=== PATIENT | male | born 1945 | race Caucasian/White ===

== ENCOUNTER 2017-07-16 10:49 | Inpatient (IN) | payer MEDICARE ==
[~2017-07-16 10:49] MED LIST: ATROPINE 1 MG/10 ML SYRINGE; EPINEPHrine 0.1 MG/ML SYG; NA BICARBONATE 8.4% 50 ML SYG
[2017-07-16] MEDS: SODIUM CHLORIDE 0.9% 500 ML BAG IV* (10:53)
[2017-07-16] MEDS ORDERED: NORepinephrine 8MG/250 ML (PMX 250 ML (11:08)
[2017-07-16 11:30] LABS: WHITE BLOOD COUNT 15.4 10^3/ul (4.8-10.8)
[2017-07-16 11:30] LABS: ABNORMAL IP MESSAGE 1; HEMOGLOBIN 9.1 g/dl (14.0-18.0); MEAN CORPUSCULAR HGB CONC 28.4 g/dl (32.0-37.0); MEAN CORPUSCULAR VOLUME 91.4 fl (82.0-101.0); MEAN PLATELET VOLUME 12.8 fl (7.4-10.4); NUCLEATED RED BLOOD CELLS% 1.4 /100WBC (0.0-0.0); PLATELET COUNT 141 10^3/UL (140-415); POSITIVE DIFF @See below; RED CELL DISTRIBUTION WIDTH 18.5 % (11.5-14.5)
[2017-07-16 11:35] LABS: ADD MAN DIFF? YES
[2017-07-16 11:57] LABS: MAGNESIUM 2.5 mg/dl (1.7-2.5)
[2017-07-16 11:57] LABS: PHOSPHORUS 8.1 mg/dl (2.5-4.9)
[2017-07-16 11:59] LABS: ALANINE AMINOTRANSFERASE 83 IU/L (13-69); ALBUMIN 2.6 g/dl (3.3-4.9); ALKALINE PHOSPHATASE 304 IU/L (42-121); ANION GAP 25 (8-16); ASPARTATE AMINO TRANSFERASE 150 IU/L (15-46); BILIRUBIN,INDIRECT 0.2 mg/dl (0-1.1); BILIRUBIN,TOTAL 0.2 mg/dl (0.2-1.3); BLOOD UREA NITROGEN 90 mg/dl (7-20); CALCIUM 8.5 mg/dl (8.4-10.2); CARBON DIOXIDE 13 mmol/L (21-31); CHLORIDE 121 mmol/L (97-110); CREATININE 2.99 mg/dl (0.61-1.24); GLUCOSE 155 mg/dl (70-220); SODIUM 153 mmol/L (135-144); TOTAL PROTEIN 6.3 g/dl (6.1-8.1)
[2017-07-16 12:08] LABS: INR 2.22; PROTIME 25.2 Sec (11.9-14.9)
[2017-07-16 12:09] LABS: PARTIAL THROMBOPLASTIN TIME 46.6 Sec (25.0-35.0); TROPONIN-I 0.093 ng/ml (0.00-0.12)
[2017-07-16] MEDS: NORepinephrine 8MG/250 ML (PMX 250 ML IV ×2 (12:12→18:59)
[2017-07-16] MEDS: EPINEPHrine 4 MG in DEXTROSE 5% 246 ML IV ×3 (12:12→19:02)
[2017-07-16 12:23] LABS: ANISOCYTOSIS 1+ (0-0); BAND NEUTROPHILS % (M) 13 % (0-4); BURR CELLS 3+ (0-0); HYPOCHROMASIA 1+ (0-0); LYMPHOCYTES #M 3.2 10^3/ul (0.8-2.9); LYMPHOCYTES % (M) 21 % (15-51); MICROCYTOSIS 1+ (0-0); MONOCYTE #M 0.4 10^3/ul (0.3-0.9); MONOCYTES % (M) 3 % (0-11); PLATELET ESTIMATE NORMAL; POIKILOCYTOSIS 3+ (0-0); POLYCHROMASIA 3+ (0-0); PROMYELOCYTES #M 0.1 10^3/ul (0-0); PROMYELOCYTES % (M) 1 % (0-0); SEG NEUT #M 9.9 10^3/ul (1.6-7.5); SEGMENTED NEUTROPHILS (M) % 62 % (39-77); SMUDGE%M 2 % (0-0)
[2017-07-16 12:24] LABS: B-TYPE NATRIURETIC PEPTIDE 62400 PG/ML (0-125)
[2017-07-16 12:29] LABS: AADO2 Arterial 533.6 mmHg (7.0-24.0); Allen Test ACCEPTAB; Arterial Base Excess -19.5 mmol/L (-3.0-3); Arterial Blood Gas Oxygen Sat 95.4 mmHG (95.0-98.0); Arterial COHb 0.3 % (0.0-3.0); Arterial Fraction of Oxyhgb 94.6 % (93.0-99.0); Arterial HCO3 12.3 mmol/L (22.0-26.0); Arterial MetHb 0.5 % (0.0-1.5); Arterial Total Hemglobin 9.7 g/dl (12.0-18.0); Arterial pCO2 59.1 mmhg (35-45); MODE VENT - AC; Site Left Radial
[2017-07-16] MEDS ORDERED: NA BICARBONATE 8.4% 50 ML SYG (12:40)
[2017-07-16] MEDS: CA CHLORIDE 10% 10 ML SYRINGE IV (12:49)
[2017-07-16] MEDS ORDERED: FENTAnyl 50 MCG/ML VIAL IV (13:30)
[2017-07-16] MEDS: SODIUM BICARBONATE (IV ADD) 150 MEQ in SOD CHLORIDE 0.9% 1,000 ML IV (13:30)
[2017-07-16] MEDS: VECURONIUM 100 MG in DEXTROSE 5% 100 ML IV (13:48)
[2017-07-16] MEDS: SODIUM BICARBONATE (IV ADD) 150 MEQ in DEXTROSE 5% 850 ML IV (13:57)
[2017-07-16] MEDS: MIDAZOLAM (DRIP) 50 mg/50 mL 50 ML IV ×2 (13:57→19:09)
[2017-07-16] MEDS ORDERED: ACETAMINOPHEN 325 MG TAB PO (14:00)
[2017-07-16] MEDS ORDERED: ONDANSETRON 4 MG INJ IV ×2 (14:00→18:00)
[2017-07-16 16:03] LABS: AADO2 Arterial 205.7 mmHg (7.0-24.0); Allen Test ACCEPTAB; Arterial Base Excess -12.6 mmol/L (-3.0-3); Arterial Blood Gas Oxygen Sat 99.6 mmHG (95.0-98.0); Arterial COHb 0.3 % (0.0-3.0); Arterial Fraction of Oxyhgb 98.8 % (93.0-99.0); Arterial HCO3 15.4 mmol/L (22.0-26.0); Arterial MetHb 0.5 % (0.0-1.5); Arterial Total Hemglobin 10.1 g/dl (12.0-18.0); Arterial pCO2 35.8 mmhg (35-45); MODE VENT - AC; Site Left Radial; Temperature 32.4 C
[2017-07-16 17:18] LABS: ADD MAN DIFF? NO
[2017-07-16 17:23] LABS: WHITE BLOOD COUNT 16.4 10^3/ul (4.8-10.8)
[2017-07-16 17:23] LABS: ABNORMAL IP MESSAGE 1; HEMATOCRIT 28.9 % (42.0-52.0); HEMOGLOBIN 8.6 g/dl (14.0-18.0); MEAN CORPUSCULAR HEMOGLOBIN 26.1 pg (29.0-33.0); MEAN CORPUSCULAR HGB CONC 29.8 g/dl (32.0-37.0); MEAN CORPUSCULAR VOLUME 87.6 fl (82.0-101.0); MEAN PLATELET VOLUME 11.8 fl (7.4-10.4); NUCLEATED RED BLOOD CELLS% 1.4 /100WBC (0.0-0.0); PLATELET COUNT 128 10^3/UL (140-415); POSITIVE DIFF @See below; RED CELL DISTRIBUTION WIDTH 18.4 % (11.5-14.5)
[2017-07-16 17:44] LABS: INR 2.38; PROTIME 26.6 Sec (11.9-14.9); PT RATIO 2.1
[2017-07-16 17:45] LABS: ANION GAP 24 (8-16); BLOOD UREA NITROGEN 93 mg/dl (7-20); CARBON DIOXIDE 16 mmol/L (21-31); CHLORIDE 118 mmol/L (97-110); CREATININE 3.04 mg/dl (0.61-1.24); GLUCOSE 231 mg/dl (70-220); PARTIAL THROMBOPLASTIN TIME 44.3 Sec (25.0-35.0); POTASSIUM 5.2 mmol/L (3.5-5.1); SODIUM 153 mmol/L (135-144)
[2017-07-16 17:47] LABS: AMYLASE 188 U/L (11-123); LIPASE 140 U/L (23-300); MAGNESIUM 2.1 mg/dl (1.7-2.5)
[2017-07-16 17:47] LABS: PHOSPHORUS 7.5 mg/dl (2.5-4.9)
[2017-07-16] MEDS ORDERED: ACETAMINOPHEN 650 MG SUPP PR (18:00)
[2017-07-16] MEDS ORDERED: DEXTROSE 50% 50 ML SYRINGE IV ×3 (18:00→19:00)
[2017-07-16] MEDS ORDERED: INSULIN HUMAN REGULAR 100 UNIT in SOD CHLORIDE 0.9% 99 ML IV (18:00)
[2017-07-16] MEDS ORDERED: IPRATROPIUM (HFA) 12.9 GM INHALER INH (18:00)
[2017-07-16] MEDS ORDERED: ACETAMINOPHEN 650MG/20.3ML CUP PO ×2 (18:00)
[2017-07-16] MEDS ORDERED: EPINEPHrine 4 MG in SOD CHLORIDE 0.9% 246 ML IV ×2 (18:00→19:00)
[2017-07-16] MEDS ORDERED: morphine 2 MG INJ IV (18:00)
[2017-07-16] MEDS ORDERED: NORepinephrine 8MG/250 ML (PMX 250 ML IV (18:00)
[2017-07-16] MEDS ORDERED: LORAZEPAM 2 MG INJ IV (18:00)
[2017-07-16] MEDS ORDERED: ALBUTEROL HFA 8 GM INHALER INH (18:00)
[2017-07-16] MEDS ORDERED: MEPERIDINE 25 MG INJ IV ×2 (18:00)
[2017-07-16] MEDS: ACCU-CHEK XX ×6 (18:00→22:58)
[2017-07-16 18:34] LABS: UR BACTERIA MANY /HPF (NONE SEEN); UR RBC > 182 /HPF (0-5); UR WBC > 182 /HPF (0-5)
[2017-07-16 18:37] LABS: UR CLARITY TURBID (CLEAR); UR COLOR YELLOW (YELLOW)
[2017-07-16 18:38] LABS: UR BILIRUBIN (Dip) NEGATIVE (NEGATIVE); UR BLOOD (Dip) 3+ mg/dL (NEGATIVE); UR GLUCOSE (Dip) NEGATIVE (NEGATIVE); UR KETONES (Dip) NEGATIVE (NEGATIVE); UR TOTAL PROTEIN (Dip) TRACE mg/dl (NEGATIVE)
[2017-07-16 18:39] LABS: ADD UMIC YES; UR ASCORBIC ACID NEGATIVE (NEGATIVE); UR LEUKOCYTE ESTERASE (Dip) 3+ Leu/ul (NEGATIVE); UR NITRITE (Dip) NEGATIVE (NEGATIVE); UR UROBILINOGEN (Dip) 0.2 E.U./dL mg/dL (NEGATIVE)
[2017-07-16] MEDS: SOD CHLORIDE 0.9% 1,000 ML IV (19:05)
[2017-07-16 19:53] LABS: ACANTHOCYTES 1+ (0-0); ANISOCYTOSIS 2+ (0-0); BAND NEUTROPHILS #M 1.9 10^3/ul (0.0-0.6); BAND NEUTROPHILS % (M) 12 % (0-4); BURR CELLS 3+ (0-0); ERYTHROBLAST% (NRBC) (M) 2 % (0-0); LYMPHOCYTES #M 0.3 10^3/ul (0.8-2.9); LYMPHOCYTES % (M) 2 % (15-51); MICROCYTOSIS 1+ (0-0); MONOCYTE #M 0.4 10^3/ul (0.3-0.9); MONOCYTES % (M) 3 % (0-11); POIKILOCYTOSIS 3+ (0-0); POLYCHROMASIA 1+ (0-0); SEG NEUT #M 13.9 10^3/ul (1.6-7.5); SEGMENTED NEUTROPHILS (M) % 83 % (39-77); SMUDGE%M 3 % (0-0)
[2017-07-16] MEDS: INSULIN HUMAN REGULAR 100 UNIT in SOD CHLORIDE 0.9% 99 ML IV (19:56)
[2017-07-16] MEDS: PIPER-TAZO 2.25 GM (PMX) 50 ML IVPB (19:56)
[2017-07-16] MEDS: ARTIFICIAL TEARS 15 ML OPH BOTH EYES (19:59)
[2017-07-16] MEDS: LEVETIRACETAM 500 MG (PMX) 100 ML IVPB (20:53)
[2017-07-16] MEDS: OCULAR LUBRICANT 3.5 GM OPH OINT BOTH EYES (21:12)
[2017-07-17] MEDS: ACCU-CHEK XX ×20 (00:05→19:00)
[2017-07-17 00:12] LABS: AADO2 Arterial 303.7 mmHg (7.0-24.0); Allen Test ACCEPTAB; Arterial Base Excess -9.3 mmol/L (-3.0-3); Arterial Blood Gas Oxygen Sat 97.9 mmHG (95.0-98.0); Arterial COHb 0.3 % (0.0-3.0); Arterial Fraction of Oxyhgb 97.2 % (93.0-99.0); Arterial HCO3 16.6 mmol/L (22.0-26.0); Arterial MetHb 0.4 % (0.0-1.5); Arterial Total Hemglobin 9.4 g/dl (12.0-18.0); Arterial pCO2 30.7 mmhg (35-45); Blood Gas Low PEEP Setting 0 cmH2O; MODE VENT - AC; Site Right Radial; Temperature 33.1 C
[2017-07-17] MEDS: ARTIFICIAL TEARS 15 ML OPH BOTH EYES ×4 (00:25→17:27)
[2017-07-17] MEDS: OCULAR LUBRICANT 3.5 GM OPH OINT BOTH EYES ×5 (00:25→17:26)
[2017-07-17 00:52] LABS: WHITE BLOOD COUNT 10.5 10^3/ul (4.8-10.8)
[2017-07-17 00:52] LABS: ABNORMAL IP MESSAGE 1; HEMATOCRIT 27.4 % (42.0-52.0); HEMOGLOBIN 8.3 g/dl (14.0-18.0); MEAN CORPUSCULAR HEMOGLOBIN 26.1 pg (29.0-33.0); MEAN CORPUSCULAR HGB CONC 30.3 g/dl (32.0-37.0); MEAN CORPUSCULAR VOLUME 86.2 fl (82.0-101.0); MEAN PLATELET VOLUME 10.7 fl (7.4-10.4); NUCLEATED RED BLOOD CELLS% 0.9 /100WBC (0.0-0.0); PLATELET COUNT 94 10^3/UL (140-415); POSITIVE DIFF @See below; RED BLOOD COUNT 3.18 10^6/ul (4.70-6.10)
[2017-07-17 00:59] LABS: ADD MAN DIFF? YES
[2017-07-17 01:09] LABS: AMYLASE 130 U/L (11-123); LIPASE 146 U/L (23-300)
[2017-07-17 01:10] LABS: ANION GAP 24 (8-16); BLOOD UREA NITROGEN 94 mg/dl (7-20); CALCIUM 7.8 mg/dl (8.4-10.2); CARBON DIOXIDE 17 mmol/L (21-31); CHLORIDE 117 mmol/L (97-110); GLUCOSE 229 mg/dl (70-220); POTASSIUM 4.4 mmol/L (3.5-5.1); SODIUM 154 mmol/L (135-144)
[2017-07-17 01:28] LABS: PROTIME 28.6 Sec (11.9-14.9); PT RATIO 2.2
[2017-07-17 01:29] LABS: PARTIAL THROMBOPLASTIN TIME 47.6 Sec (25.0-35.0)
[2017-07-17 02:16] LABS: ANISOCYTOSIS 1+ (0-0); BAND NEUTROPHILS #M 2.2 10^3/ul (0.0-0.6); BAND NEUTROPHILS % (M) 21 % (0-4); BURR CELLS 1+ (0-0); ERYTHROBLAST% (NRBC) (M) 2 % (0-0); GIANT THROMBO% (M) 1 % (0-0); LYMPHOCYTES #M 0.7 10^3/ul (0.8-2.9); LYMPHOCYTES % (M) 7 % (15-51); METAMYELOCYTES #M 0.1 10^3/ul (0.0-0.0); METAMYELOCYTES %M 1 % (0-0); MONOCYTE #M 0.1 10^3/ul (0.3-0.9); MONOCYTES % (M) 1 % (0-11); PLATELET ESTIMATE DECREASED; POIKILOCYTOSIS 3+ (0-0); POLYCHROMASIA 2+ (0-0); REACTIVE LYMPHOCYTES #M 0.1 10^3/ul (0.0-0.0); REACTIVE LYMPHOCYTES% (M) 1 % (0-0); SCHISTOCYTES 2+ (0-0); SEG NEUT #M 7.4 10^3/ul (1.6-7.5); SEGMENTED NEUTROPHILS (M) % 68 % (39-77); SMUDGE%M 1 % (0-0); TARGET CELLS 1+ (0-0)
[2017-07-17] MEDS: MIDAZOLAM (DRIP) 50 mg/50 mL 50 ML IV ×2 (02:38→12:11)
[2017-07-17] MEDS: VECURONIUM 100 MG in DEXTROSE 5% 100 ML IV (04:28)
[2017-07-17] MEDS: INSULIN HUMAN REGULAR 100 UNIT in SOD CHLORIDE 0.9% 99 ML IV (04:28)
[2017-07-17] MEDS: PANTOPRAZOLE 40 MG INJ IV (05:07)
[2017-07-17 05:44] LABS: AADO2 Arterial 332.5 mmHg (7.0-24.0); Allen Test ACCEPTAB; Arterial Base Excess -7.8 mmol/L (-3.0-3); Arterial Blood Gas Oxygen Sat 93.4 mmHG (95.0-98.0); Arterial COHb 0.3 % (0.0-3.0); Arterial Fraction of Oxyhgb 92.7 % (93.0-99.0); Arterial HCO3 18.5 mmol/L (22.0-26.0); Arterial MetHb 0.4 % (0.0-1.5); Arterial Total Hemglobin 9.2 g/dl (12.0-18.0); Arterial pCO2 35.7 mmhg (35-45); Blood Gas Low PEEP Setting 0 cmH2O; MODE VENT - AC; Site Right Radial; Temperature 33.7 C
[2017-07-17] MEDS: PIPER-TAZO 2.25 GM (PMX) 50 ML IVPB ×3 (05:53→22:36)
[2017-07-17 06:12] LABS: ABNORMAL IP MESSAGE 1; HEMATOCRIT 25.4 % (42.0-52.0); HEMOGLOBIN 7.9 g/dl (14.0-18.0); MEAN CORPUSCULAR HEMOGLOBIN 26.7 pg (29.0-33.0); MEAN CORPUSCULAR HGB CONC 31.1 g/dl (32.0-37.0); MEAN CORPUSCULAR VOLUME 85.8 fl (82.0-101.0); MEAN PLATELET VOLUME 10.1 fl (7.4-10.4); NUCLEATED RED BLOOD CELLS% 0.8 /100WBC (0.0-0.0); PLATELET COUNT 58 10^3/UL (140-415); POSITIVE DIFF @See below; RED BLOOD COUNT 2.96 10^6/ul (4.70-6.10)
[2017-07-17 06:12] LABS: WHITE BLOOD COUNT 6.3 10^3/ul (4.8-10.8)
[2017-07-17] MEDS: SOD CHLORIDE 0.9% 1,000 ML IV (06:20)
[2017-07-17 06:36] LABS: ALANINE AMINOTRANSFERASE 134 IU/L (13-69); ALBUMIN 1.7 g/dl (3.3-4.9); ALBUMIN/GLOBULIN RATIO 0.56; ALKALINE PHOSPHATASE 234 IU/L (42-121); ANION GAP 21 (8-16); ASPARTATE AMINO TRANSFERASE 350 IU/L (15-46); BILIRUBIN,INDIRECT 0.2 mg/dl (0-1.1); BILIRUBIN,TOTAL 0.2 mg/dl (0.2-1.3); BLOOD UREA NITROGEN 99 mg/dl (7-20); CALCIUM 7.7 mg/dl (8.4-10.2); CARBON DIOXIDE 19 mmol/L (21-31); CHLORIDE 120 mmol/L (97-110); CREATININE 2.91 mg/dl (0.61-1.24); GLUCOSE 95 mg/dl (70-220); POTASSIUM 4.3 mmol/L (3.5-5.1); SODIUM 156 mmol/L (135-144); TOTAL PROTEIN 4.7 g/dl (6.1-8.1)
[2017-07-17 06:37] LABS: INR 2.81; PROTIME 30.4 Sec (11.9-14.9); PT RATIO 2.4
[2017-07-17 06:38] LABS: ADD MAN DIFF? YES; PARTIAL THROMBOPLASTIN TIME 48.5 Sec (25.0-35.0)
[2017-07-17 07:01] LABS: AMYLASE 135 U/L (11-123); LIPASE 377 U/L (23-300)
[2017-07-17 07:15] LABS: ANION GAP 19 (8-16); BLOOD UREA NITROGEN 95 mg/dl (7-20); CALCIUM 7.6 mg/dl (8.4-10.2); CARBON DIOXIDE 20 mmol/L (21-31); CHLORIDE 121 mmol/L (97-110); CREATININE 3.03 mg/dl (0.61-1.24); GLUCOSE 71 mg/dl (70-220); POTASSIUM 4.2 mmol/L (3.5-5.1); SODIUM 156 mmol/L (135-144)
[2017-07-17] MEDS: DEXTROSE 50% 50 ML SYRINGE IV ×2 (07:57→12:56)
[2017-07-17] MEDS: LEVETIRACETAM 500 MG (PMX) 100 ML IVPB ×2 (08:53→20:42)
[2017-07-17] MEDS: NORepinephrine 8MG/250 ML (PMX 250 ML IV (09:50)
[2017-07-17] MEDS: SODIUM BICARBONATE (IV ADD) 100 MEQ in DEXTROSE 5% 1,000 ML IV ×2 (11:06→21:33)
[2017-07-17 12:15] LABS: AADO2 Arterial 408.4 mmHg (7.0-24.0); Allen Test ACCEPTAB; Arterial Blood Gas Oxygen Sat 94.3 mmHG (95.0-98.0); Arterial COHb 0.3 % (0.0-3.0); Arterial Fraction of Oxyhgb 93.8 % (93.0-99.0); Arterial HCO3 19.1 mmol/L (22.0-26.0); Arterial MetHb 0.2 % (0.0-1.5); Arterial Total Hemglobin 10.2 g/dl (12.0-18.0); Arterial pCO2 34.6 mmhg (35-45); MODE VENT - AC; Site Right Radial; Temperature 33.2 C
[2017-07-17 12:26] LABS: ADD MAN DIFF? NO
[2017-07-17 12:36] LABS: WHITE BLOOD COUNT 5.7 10^3/ul (4.8-10.8)
[2017-07-17 12:36] LABS: ABNORMAL IP MESSAGE 1; BASOPHILS % 0.5 % (0.0-2.0); EOSINOPHILS % 0.7 % (0.0-7.0); HEMATOCRIT 27.6 % (42.0-52.0); HEMOGLOBIN 8.4 g/dl (14.0-18.0); LYMPHOCYTES # 0.6 10^3/ul (0.8-2.9); LYMPHOCYTES % 10.8 % (15.0-51.0); MEAN CORPUSCULAR HEMOGLOBIN 25.9 pg (29.0-33.0); MEAN CORPUSCULAR HGB CONC 30.4 g/dl (32.0-37.0); MEAN CORPUSCULAR VOLUME 85.2 fl (82.0-101.0); MEAN PLATELET VOLUME 12.1 fl (7.4-10.4); MONOCYTE # 0.1 10^3/ul (0.3-0.9); MONOCYTES % 2.5 % (0.0-11.0); NEUTROPHIL # 4.8 10^3/ul (1.6-7.5); NEUTROPHILS % 85.3 % (39.0-77.0); NUCLEATED RED BLOOD CELLS% 0.7 /100WBC (0.0-0.0); PLATELET COUNT 61 10^3/UL (140-415); POSITIVE DIFF @See below; RED BLOOD COUNT 3.24 10^6/ul (4.70-6.10); RED CELL DISTRIBUTION WIDTH 18.1 % (11.5-14.5)
[2017-07-17 12:52] LABS: ANION GAP 17 (8-16); BLOOD UREA NITROGEN 96 mg/dl (7-20); CALCIUM 7.5 mg/dl (8.4-10.2); CARBON DIOXIDE 21 mmol/L (21-31); CHLORIDE 120 mmol/L (97-110); GLUCOSE 70 mg/dl (70-220); POTASSIUM 4.5 mmol/L (3.5-5.1); SODIUM 153 mmol/L (135-144)
[2017-07-17 12:56] LABS: AMYLASE 207 U/L (11-123); LIPASE 594 U/L (23-300)
[2017-07-17 12:56] LABS: PHOSPHORUS 6.3 mg/dl (2.5-4.9)
[2017-07-17 12:58] LABS: INR 2.46; PARTIAL THROMBOPLASTIN TIME 49.3 Sec (25.0-35.0); PROTIME 27.3 Sec (11.9-14.9); PT RATIO 2.1
[2017-07-17 13:13] LABS: ANISOCYTOSIS 1+ (0-0); BAND NEUTROPHILS #M 1.5 10^3/ul (0.0-0.6); BAND NEUTROPHILS % (M) 27 % (0-4); BURR CELLS 3+ (0-0); EOSINOPHILS % (M) 1 % (0-7); ERYTHROBLAST% (NRBC) (M) 3 % (0-0); GIANT THROMBO% (M) 1 % (0-0); LYMPHOCYTES #M 1.9 10^3/ul (0.8-2.9); LYMPHOCYTES % (M) 35 % (15-51); MONOCYTE #M 0.1 10^3/ul (0.3-0.9); MONOCYTES % (M) 2 % (0-11); PLATELET ESTIMATE SIG DECREASED; POIKILOCYTOSIS 3+ (0-0); SEG NEUT #M 2.1 10^3/ul (1.6-7.5); SEGMENTED NEUTROPHILS (M) % 35 % (39-77); SMUDGE%M 25 % (0-0)
[2017-07-17] MEDS: HYDROCORTISONE 100 MG INJ IV ×2 (14:24→22:36)
[2017-07-17 18:35] LABS: WHITE BLOOD COUNT 6.4 10^3/ul (4.8-10.8)
[2017-07-17 18:35] LABS: ABNORMAL IP MESSAGE 1; HEMATOCRIT 27.8 % (42.0-52.0); HEMOGLOBIN 8.6 g/dl (14.0-18.0); MEAN CORPUSCULAR HEMOGLOBIN 25.6 pg (29.0-33.0); MEAN CORPUSCULAR HGB CONC 30.9 g/dl (32.0-37.0); MEAN CORPUSCULAR VOLUME 82.7 fl (82.0-101.0); NUCLEATED RED BLOOD CELLS% 0.8 /100WBC (0.0-0.0); PLATELET COUNT 54 10^3/UL (140-415); POSITIVE DIFF @See below; RED BLOOD COUNT 3.36 10^6/ul (4.70-6.10)
[2017-07-17 18:36] LABS: ADD MAN DIFF? YES
[2017-07-17 18:54] LABS: ANION GAP 17 (8-16); BLOOD UREA NITROGEN 100 mg/dl (7-20); CALCIUM 7.4 mg/dl (8.4-10.2); CARBON DIOXIDE 21 mmol/L (21-31); CHLORIDE 116 mmol/L (97-110); GLUCOSE 124 mg/dl (70-220); POTASSIUM 4.6 mmol/L (3.5-5.1); SODIUM 149 mmol/L (135-144)
[2017-07-17 18:58] LABS: AMYLASE 287 U/L (11-123); LIPASE 1243 U/L (23-300); MAGNESIUM 1.9 mg/dl (1.7-2.5)
[2017-07-17 18:58] LABS: PHOSPHORUS 6.3 mg/dl (2.5-4.9)
[2017-07-17] MEDS: ACETAMINOPHEN 650MG/20.3ML CUP PO (19:00)
[2017-07-17] MEDS: ACETAMINOPHEN 650 MG SUPP PR (19:02)
[2017-07-17 19:03] LABS: INR 2.33; PARTIAL THROMBOPLASTIN TIME 46.1 Sec (25.0-35.0); PROTIME 26.2 Sec (11.9-14.9)
[2017-07-17 19:40] LABS: ANISOCYTOSIS 2+ (0-0); BAND NEUTROPHILS #M 2.7 10^3/ul (0.0-0.6); BAND NEUTROPHILS % (M) 43 % (0-4); BURR CELLS 3+ (0-0); EOSINOPHILS % (M) 1 % (0-7); ERYTHROBLAST% (NRBC) (M) 3 % (0-0); GIANT THROMBO% (M) 4 % (0-0); LYMPHOCYTES #M 0.8 10^3/ul (0.8-2.9); LYMPHOCYTES % (M) 14 % (15-51); MONOCYTES % (M) 1 % (0-11); PLATELET ESTIMATE DECREASED; POIKILOCYTOSIS 3+ (0-0); POLYCHROMASIA 1+ (0-0); SEG NEUT #M 2.8 10^3/ul (1.6-7.5); SEGMENTED NEUTROPHILS (M) % 41 % (39-77); SMUDGE%M 7 % (0-0); TARGET CELLS 2+ (0-0)
[2017-07-17] MEDS ORDERED: DEXTROSE 50% 50 ML SYRINGE IV ×2 (20:30)
[2017-07-17] MEDS ORDERED: GLUCAGON 1 MG INJ IM (20:30)
[2017-07-17] MEDS ORDERED: GLUCOSE GEL 15 GRAM TUBE PO ×2 (20:30)
[2017-07-17] MEDS ORDERED: GLUCOSE GEL 15 GRAM TUBE BUCCAL (20:30)
[2017-07-17 20:42] LABS: AADO2 Arterial 467.9 mmHg (7.0-24.0); Allen Test ACCEPTAB; Arterial Base Excess -4.7 mmol/L (-3.0-3); Arterial Blood Gas Oxygen Sat 96.6 mmHG (95.0-98.0); Arterial COHb 0.3 % (0.0-3.0); Arterial Fraction of Oxyhgb 96.1 % (93.0-99.0); Arterial MetHb 0.2 % (0.0-1.5); Arterial Total Hemglobin 9.7 g/dl (12.0-18.0); MODE VENT - AC; Site Right Radial; Temperature 34.2 C
[2017-07-17] MEDS: INSULIN DETEMIR [LEVEMIR] 3ML CART SC (21:32)
[2017-07-17] MEDS: INSULIN ASPART [NOVOLOG] 3 ML PEN SC (21:32)
[2017-07-17] MEDS: COLLAGENASE 30 GM TUBE TOP (21:33)
[2017-07-17] MEDS: BALSAM PERU/CASTOR OIL 60 GM TUBE TOP (21:33)
[2017-07-18] MEDS: ARTIFICIAL TEARS 15 ML OPH BOTH EYES ×4 (00:07→17:09)
[2017-07-18] MEDS: ACETAMINOPHEN 650 MG SUPP PR ×4 (00:07→17:10)
[2017-07-18] MEDS: ACETAMINOPHEN 650MG/20.3ML CUP PO ×4 (00:07→17:10)
[2017-07-18 01:02] LABS: ADD MAN DIFF? NO
[2017-07-18 01:12] LABS: WHITE BLOOD COUNT 8.8 10^3/ul (4.8-10.8)
[2017-07-18 01:12] LABS: ABNORMAL IP MESSAGE 1; BASOPHIL # 0.1 10^3/ul (0.0-0.1); BASOPHILS % 0.7 % (0.0-2.0); EOSINOPHILS % 0.1 % (0.0-7.0); HEMATOCRIT 27.8 % (42.0-52.0); HEMOGLOBIN 8.7 g/dl (14.0-18.0); LYMPHOCYTES # 0.5 10^3/ul (0.8-2.9); LYMPHOCYTES % 5.3 % (15.0-51.0); MEAN CORPUSCULAR HEMOGLOBIN 25.7 pg (29.0-33.0); MEAN CORPUSCULAR HGB CONC 31.3 g/dl (32.0-37.0); MONOCYTE # 0.2 10^3/ul (0.3-0.9); MONOCYTES % 1.8 % (0.0-11.0); NEUTROPHIL # 8.1 10^3/ul (1.6-7.5); NUCLEATED RED BLOOD CELLS # 0.1 10^3/ul (0.0-0.0); NUCLEATED RED BLOOD CELLS% 0.6 /100WBC (0.0-0.0); PLATELET COUNT 53 10^3/UL (140-415); POSITIVE DIFF @See below; RED BLOOD COUNT 3.39 10^6/ul (4.70-6.10); RED CELL DISTRIBUTION WIDTH 18.1 % (11.5-14.5)
[2017-07-18 01:25] LABS: NEUTROPHILS % 91.4 % (39.0-77.0)
[2017-07-18 01:36] LABS: AMYLASE 304 U/L (11-123); ANION GAP 16 (8-16); BLOOD UREA NITROGEN 101 mg/dl (7-20); CALCIUM 7.6 mg/dl (8.4-10.2); CARBON DIOXIDE 23 mmol/L (21-31); CHLORIDE 114 mmol/L (97-110); CREATININE 3.05 mg/dl (0.61-1.24); GLUCOSE 143 mg/dl (70-220); LIPASE 1389 U/L (23-300); MAGNESIUM 1.9 mg/dl (1.7-2.5); PHOSPHORUS 6.4 mg/dl (2.5-4.9); SODIUM 148 mmol/L (135-144)
[2017-07-18 01:38] LABS: INR 2.18; PROTIME 24.8 Sec (11.9-14.9); PT RATIO 1.9
[2017-07-18 01:39] LABS: PARTIAL THROMBOPLASTIN TIME 43.4 Sec (25.0-35.0)
[2017-07-18] MEDS: MIDAZOLAM (DRIP) 50 mg/50 mL 50 ML IV (01:48)
[2017-07-18] MEDS: INSULIN ASPART [NOVOLOG] 3 ML PEN SC ×6 (01:52→20:49)
[2017-07-18 02:50] LABS: SODIUM,URINE RANDOM 48 mmol/L (30-90)
[2017-07-18] MEDS: PANTOPRAZOLE 40 MG INJ IV (05:11)
[2017-07-18] MEDS: OCULAR LUBRICANT 3.5 GM OPH OINT BOTH EYES ×3 (05:11→17:09)
[2017-07-18] MEDS: HYDROCORTISONE 100 MG INJ IV ×3 (05:35→21:13)
[2017-07-18] MEDS: PIPER-TAZO 2.25 GM (PMX) 50 ML IVPB ×3 (05:35→22:16)
[2017-07-18 05:38] LABS: ADD MAN DIFF? NO
[2017-07-18 05:43] LABS: PLATELET COUNT 54 10^3/UL (140-415)
[2017-07-18 05:48] LABS: WHITE BLOOD COUNT 12.6 10^3/ul (4.8-10.8)
[2017-07-18 05:48] LABS: ABNORMAL IP MESSAGE 1; BASOPHIL # 0.1 10^3/ul (0.0-0.1); BASOPHILS % 0.5 % (0.0-2.0); EOSINOPHILS % 0.1 % (0.0-7.0); HEMATOCRIT 27.9 % (42.0-52.0); HEMOGLOBIN 8.9 g/dl (14.0-18.0); LYMPHOCYTES # 0.5 10^3/ul (0.8-2.9); LYMPHOCYTES % 3.8 % (15.0-51.0); MEAN CORPUSCULAR HEMOGLOBIN 26.1 pg (29.0-33.0); MEAN CORPUSCULAR HGB CONC 31.9 g/dl (32.0-37.0); MEAN CORPUSCULAR VOLUME 81.8 fl (82.0-101.0); MONOCYTE # 0.2 10^3/ul (0.3-0.9); MONOCYTES % 1.9 % (0.0-11.0); NEUTROPHIL # 11.6 10^3/ul (1.6-7.5); NUCLEATED RED BLOOD CELLS # 0.1 10^3/ul (0.0-0.0); NUCLEATED RED BLOOD CELLS% 0.6 /100WBC (0.0-0.0); PLATELET COUNT 50 10^3/UL (140-415); POSITIVE DIFF @See below; RED BLOOD COUNT 3.41 10^6/ul (4.70-6.10); RED CELL DISTRIBUTION WIDTH 18.3 % (11.5-14.5)
[2017-07-18 05:59] LABS: CREATINE KINASE 56 IU/L (23-200)
[2017-07-18 06:00] LABS: AADO2 Arterial 597.6 mmHg (7.0-24.0); Allen Test ACCEPTAB; Arterial Base Excess -4.9 mmol/L (-3.0-3); Arterial Blood Gas Oxygen Sat 94.7 mmHG (95.0-98.0); Arterial COHb 0.3 % (0.0-3.0); Arterial Fraction of Oxyhgb 94.1 % (93.0-99.0); Arterial HCO3 20.8 mmol/L (22.0-26.0); Arterial MetHb 0.3 % (0.0-1.5); Arterial Total Hemglobin 9.2 g/dl (12.0-18.0); Arterial pCO2 40.1 mmhg (35-45); Blood Gas Mean Airway Pressure 12; MODE VENT - AC; Site Right Radial; Temperature 36.5 C
[2017-07-18 06:01] LABS: INR 2.16; PROTIME 24.6 Sec (11.9-14.9); PT RATIO 1.9
[2017-07-18 06:02] LABS: PARTIAL THROMBOPLASTIN TIME 44.9 Sec (25.0-35.0)
[2017-07-18 06:07] LABS: AMYLASE 305 U/L (11-123); LIPASE 1393 U/L (23-300); PHOSPHORUS 6.7 mg/dl (2.5-4.9); THROMBIN TIME 15.2 SEC (13.8-19.1)
[2017-07-18 06:07] LABS: CALCIUM 7.7 mg/dl (8.4-10.2)
[2017-07-18 06:12] LABS: CK INDEX 20.5
[2017-07-18 06:13] LABS: DIGOXIN 0.4 ng/ml (1.0-2.0)
[2017-07-18 06:20] LABS: ALANINE AMINOTRANSFERASE 120 IU/L (13-69); ALBUMIN 1.9 g/dl (3.3-4.9); ALBUMIN/GLOBULIN RATIO 0.63; ALKALINE PHOSPHATASE 230 IU/L (42-121); ANION GAP 21 (8-16); ASPARTATE AMINO TRANSFERASE 215 IU/L (15-46); BILIRUBIN,INDIRECT 0.3 mg/dl (0-1.1); BILIRUBIN,TOTAL 0.3 mg/dl (0.2-1.3); BLOOD UREA NITROGEN 98 mg/dl (7-20); CALCIUM 7.5 mg/dl (8.4-10.2); CARBON DIOXIDE 22 mmol/L (21-31); CHLORIDE 113 mmol/L (97-110); CHOL/HDL RATIO 2.6 RATIO; CHOLESTEROL 63 mg/dl (100-200); CREATININE 3.02 mg/dl (0.61-1.24); GLUCOSE 149 mg/dl (70-220); HDL CHOLESTEROL 24 mg/dl (31-75); LDL CHOLESTEROL,CALCULATED 26 mg/dl; MAGNESIUM 1.9 mg/dl (1.7-2.5); POTASSIUM 5.2 mmol/L (3.5-5.1); SODIUM 151 mmol/L (135-144); TOTAL PROTEIN 4.9 g/dl (6.1-8.1); TRIGLYCERIDES 64 mg/dl (0-149)
[2017-07-18 06:23] LABS: FREE T4 (FREE THYROXINE) 1.29 ng/dl (0.78-2.44)
[2017-07-18 06:25] LABS: NEUTROPHILS % 92.6 % (39.0-77.0)
[2017-07-18 06:34] LABS: THYROID STIMULATING HORMONE 0.267 MIU/L (0.465-4.680)
[2017-07-18 06:36] LABS: B-TYPE NATRIURETIC PEPTIDE 52400 PG/ML (0-125)
[2017-07-18] MEDS: FUROSEMIDE 40 MG INJ IV (06:48)
[2017-07-18 07:52] LABS: FIBRIN SPLIT PRODUCT <10 ug/ml (<10)
[2017-07-18] MEDS: SODIUM BICARBONATE (IV ADD) 100 MEQ in DEXTROSE 5% 1,000 ML IV ×2 (08:17→19:39)
[2017-07-18] MEDS: LEVETIRACETAM 500 MG (PMX) 100 ML IVPB (08:17)
[2017-07-18 08:26] LABS: ANISOCYTOSIS 1+ (0-0); BAND NEUTROPHILS #M 4.1 10^3/ul (0.0-0.6); BAND NEUTROPHILS % (M) 33 % (0-4); BURR CELLS 1+ (0-0); ERYTHROBLAST% (NRBC) (M) 12 % (0-0); GIANT THROMBO% (M) 1 % (0-0); HYPOCHROMASIA 1+ (0-0); LYMPHOCYTES #M 1.8 10^3/ul (0.8-2.9); LYMPHOCYTES % (M) 15 % (15-51); METAMYELOCYTES #M 0.1 10^3/ul (0.0-0.0); METAMYELOCYTES %M 1 % (0-0); MONOCYTE #M 0.3 10^3/ul (0.3-0.9); MONOCYTES % (M) 3 % (0-11); MYELOCYTES #M 0.1 10^3/ul (0.0-0.0); MYELOCYTES % (M) 1 % (0-0); PLATELET ESTIMATE DECREASED; POIKILOCYTOSIS 2+ (0-0); POLYCHROMASIA 1+ (0-0); SEG NEUT #M 6.4 10^3/ul (1.6-7.5); SEGMENTED NEUTROPHILS (M) % 47 % (39-77); SMUDGE%M 10 % (0-0)
[2017-07-18 09:06] LABS: D-DIMER > 10000.00 ng/ml (<460)
[2017-07-18] MEDS: BALSAM PERU/CASTOR OIL 60 GM TUBE TOP ×3 (09:20→21:14)
[2017-07-18] MEDS: COLLAGENASE 30 GM TUBE TOP (09:21)
[2017-07-18] MEDS ORDERED: VANCOMYCIN IV PER PHARMACY XX (11:30)
[2017-07-18] MEDS: VANCOMYCIN 1.75 GM in D5W 500 ML IVPB (12:41)
[2017-07-18 15:36] LABS: ANION GAP 18 (8-16); BLOOD UREA NITROGEN 99 mg/dl (7-20); CARBON DIOXIDE 24 mmol/L (21-31); CHLORIDE 106 mmol/L (97-110); CREATININE 3.09 mg/dl (0.61-1.24); GLUCOSE 249 mg/dl (70-220); SODIUM 143 mmol/L (135-144)
[2017-07-18] MEDS: INSULIN DETEMIR [LEVEMIR] 3ML CART SC (20:48)
[2017-07-18] MEDS: LEVETIRACETAM 1000 MG (PMX) 100 ML IVPB (21:05)
[2017-07-19] MEDS: OCULAR LUBRICANT 3.5 GM OPH OINT BOTH EYES ×2 (00:54→05:40)
[2017-07-19] MEDS: ACETAMINOPHEN 650MG/20.3ML CUP PO (00:54)
[2017-07-19] MEDS: ARTIFICIAL TEARS 15 ML OPH BOTH EYES ×2 (00:54→05:41)
[2017-07-19] MEDS: ACETAMINOPHEN 650 MG SUPP PR (01:00)
[2017-07-19] MEDS: INSULIN ASPART [NOVOLOG] 3 ML PEN SC ×6 (01:04→20:20)
[2017-07-19 04:44] LABS: WHITE BLOOD COUNT 12.1 10^3/ul (4.8-10.8)
[2017-07-19 04:44] LABS: ABNORMAL IP MESSAGE 1; HEMOGLOBIN 8.1 g/dl (14.0-18.0); MEAN CORPUSCULAR HEMOGLOBIN 25.3 pg (29.0-33.0); MEAN CORPUSCULAR HGB CONC 32.4 g/dl (32.0-37.0); MEAN CORPUSCULAR VOLUME 78.1 fl (82.0-101.0); NUCLEATED RED BLOOD CELLS% 0.4 /100WBC (0.0-0.0); PLATELET COUNT 51 10^3/UL (140-415); POSITIVE DIFF @See below; RED CELL DISTRIBUTION WIDTH 18.1 % (11.5-14.5)
[2017-07-19 04:52] LABS: ADD MAN DIFF? YES
[2017-07-19 05:09] LABS: ANION GAP 17 (8-16); BLOOD UREA NITROGEN 101 mg/dl (7-20); CALCIUM 7.2 mg/dl (8.4-10.2); CARBON DIOXIDE 24 mmol/L (21-31); CHLORIDE 105 mmol/L (97-110); CREATININE 3.25 mg/dl (0.61-1.24); GLUCOSE 266 mg/dl (70-220); MAGNESIUM 1.8 mg/dl (1.7-2.5); PHOSPHORUS 6.4 mg/dl (2.5-4.9); POTASSIUM 4.6 mmol/L (3.5-5.1); SODIUM 141 mmol/L (135-144)
[2017-07-19] MEDS: HYDROCORTISONE 100 MG INJ IV ×3 (05:41→20:21)
[2017-07-19] MEDS: PANTOPRAZOLE 40 MG INJ IV (05:41)
[2017-07-19] MEDS: PIPER-TAZO 2.25 GM (PMX) 50 ML IVPB ×3 (05:41→20:21)
[2017-07-19 07:38] LABS: ANISOCYTOSIS 2+ (0-0); BAND NEUTROPHILS #M 2.9 10^3/ul (0.0-0.6); BAND NEUTROPHILS % (M) 24 % (0-4); BURR CELLS 2+ (0-0); GIANT THROMBO% (M) 2 % (0-0); HYPOCHROMASIA 1+ (0-0); LYMPHOCYTES #M 0.8 10^3/ul (0.8-2.9); LYMPHOCYTES % (M) 7 % (15-51); MICROCYTOSIS 1+ (0-0); MONOCYTE #M 0.3 10^3/ul (0.3-0.9); MONOCYTES % (M) 3 % (0-11); PLATELET ESTIMATE DECREASED; POIKILOCYTOSIS 2+ (0-0); POLYCHROMASIA 3+ (0-0); SEG NEUT #M 8.3 10^3/ul (1.6-7.5); SEGMENTED NEUTROPHILS (M) % 66 % (39-77); SMUDGE%M 1 % (0-0)
[2017-07-19] MEDS: SODIUM BICARBONATE (IV ADD) 100 MEQ in DEXTROSE 5% 1,000 ML IV ×3 (08:34→20:23)
[2017-07-19 08:43] LABS: AADO2 Arterial 253.4 mmHg (7.0-24.0); Allen Test ACCEPTAB; Arterial Base Excess -0.7 mmol/L (-3.0-3); Arterial Blood Gas Oxygen Sat 93.8 mmHG (95.0-98.0); Arterial COHb 0.3 % (0.0-3.0); Arterial Fraction of Oxyhgb 93.2 % (93.0-99.0); Arterial HCO3 22.3 mmol/L (22.0-26.0); Arterial MetHb 0.3 % (0.0-1.5); Arterial Total Hemglobin 9.6 g/dl (12.0-18.0); Arterial pCO2 30.7 mmhg (35-45); MODE VENT - AC; Site Right Radial
[2017-07-19] MEDS: LEVETIRACETAM 1000 MG (PMX) 100 ML IVPB ×2 (09:02→20:21)
[2017-07-19] MEDS: FUROSEMIDE 40 MG INJ IV (13:09)
[2017-07-19] MEDS: BALSAM PERU/CASTOR OIL 60 GM TUBE TOP ×2 (13:21→20:22)
[2017-07-19] MEDS: COLLAGENASE 30 GM TUBE TOP (13:21)
[2017-07-19] MEDS: BUMETANIDE 1 MG INJ IV (18:31)
[2017-07-19] MEDS: INSULIN DETEMIR [LEVEMIR] 3ML CART SC (20:19)
[2017-07-20] MEDS: INSULIN ASPART [NOVOLOG] 3 ML PEN SC ×7 (01:14→23:36)
[2017-07-20] MEDS: PANTOPRAZOLE 40 MG INJ IV (05:34)
[2017-07-20] MEDS: HYDROCORTISONE 100 MG INJ IV ×3 (05:34→19:57)
[2017-07-20] MEDS: PIPER-TAZO 2.25 GM (PMX) 50 ML IVPB ×3 (05:34→19:57)
[2017-07-20 05:43] LABS: ABNORMAL IP MESSAGE 1; HEMATOCRIT 23.7 % (42.0-52.0); HEMOGLOBIN 7.9 g/dl (14.0-18.0); MEAN CORPUSCULAR HEMOGLOBIN 25.6 pg (29.0-33.0); MEAN CORPUSCULAR HGB CONC 33.3 g/dl (32.0-37.0); MEAN CORPUSCULAR VOLUME 76.9 fl (82.0-101.0); NUCLEATED RED BLOOD CELLS% 0.4 /100WBC (0.0-0.0); PLATELET COUNT 41 10^3/UL (140-415); POSITIVE DIFF @See below; RED BLOOD COUNT 3.08 10^6/ul (4.70-6.10); RED CELL DISTRIBUTION WIDTH 18.4 % (11.5-14.5)
[2017-07-20 05:43] LABS: WHITE BLOOD COUNT 14.6 10^3/ul (4.8-10.8)
[2017-07-20 05:45] LABS: ADD MAN DIFF? YES
[2017-07-20 06:12] LABS: VANCOMYCIN,RANDOM 9.2 ug/ml
[2017-07-20 06:12] LABS: ANION GAP 16 (8-16); BLOOD UREA NITROGEN 108 mg/dl (7-20); CALCIUM 7.2 mg/dl (8.4-10.2); CARBON DIOXIDE 26 mmol/L (21-31); CHLORIDE 104 mmol/L (97-110); CREATININE 3.53 mg/dl (0.61-1.24); GLUCOSE 234 mg/dl (70-220); MAGNESIUM 1.9 mg/dl (1.7-2.5); PHOSPHORUS 6.5 mg/dl (2.5-4.9); POTASSIUM 4.1 mmol/L (3.5-5.1); SODIUM 142 mmol/L (135-144)
[2017-07-20] MEDS ORDERED: NORepinephrine 8MG/250 ML (PMX 250 ML (07:45)
[2017-07-20 07:53] LABS: ACANTHOCYTES 1+ (0-0); ANISOCYTOSIS 1+ (0-0); BAND NEUTROPHILS #M 0.4 10^3/ul (0.0-0.6); BAND NEUTROPHILS % (M) 3 % (0-4); BURR CELLS 2+ (0-0); ERYTHROBLAST% (NRBC) (M) 2 % (0-0); GIANT THROMBO% (M) 1 % (0-0); HYPOCHROMASIA 1+ (0-0); LYMPHOCYTES #M 1.7 10^3/ul (0.8-2.9); LYMPHOCYTES % (M) 12 % (15-51); MICROCYTOSIS 1+ (0-0); MONOCYTE #M 0.2 10^3/ul (0.3-0.9); MONOCYTES % (M) 2 % (0-11); PLATELET ESTIMATE DECREASED; PLATELET MORPHOLOGY COMMENT @See below; POIKILOCYTOSIS 3+ (0-0); POLYCHROMASIA 2+ (0-0); SEG NEUT #M 12.2 10^3/ul (1.6-7.5); SEGMENTED NEUTROPHILS (M) % 83 % (39-77); SMUDGE%M 11 % (0-0); SPHEROCYTES 1+ (0-0); TARGET CELLS 1+ (0-0)
[2017-07-20] MEDS ORDERED: NORepinephrine 16 MG in SOD CHLORIDE 0.9% 484 ML IV (08:30)
[2017-07-20] MEDS: BALSAM PERU/CASTOR OIL 60 GM TUBE TOP ×2 (09:04→19:56)
[2017-07-20] MEDS: COLLAGENASE 30 GM TUBE TOP (09:04)
[2017-07-20] MEDS: LEVETIRACETAM 1000 MG (PMX) 100 ML IVPB ×2 (09:04→19:56)
[2017-07-20] MEDS: SOD CHLORIDE 0.9% 1,000 ML IV (09:04)
[2017-07-20] MEDS: VANCOMYCIN 1.5 GM in SOD CHLORIDE 0.9% 250 ML IVPB (11:43)
[2017-07-20] MEDS: INSULIN DETEMIR [LEVEMIR] 3ML CART SC (20:11)
[2017-07-20] MEDS: HEPARIN 5,000 UNIT/0.5 ML VIAL SC (20:29)
[2017-07-21] MEDS: PANTOPRAZOLE 40 MG INJ IV (05:23)
[2017-07-21] MEDS: PIPER-TAZO 2.25 GM (PMX) 50 ML IVPB ×3 (05:24→22:39)
[2017-07-21] MEDS: HYDROCORTISONE 100 MG INJ IV ×3 (05:24→22:39)
[2017-07-21] MEDS: INSULIN ASPART [NOVOLOG] 3 ML PEN SC ×5 (05:34→20:19)
[2017-07-21 06:13] LABS: ABNORMAL IP MESSAGE 1; HEMATOCRIT 25.3 % (42.0-52.0); HEMOGLOBIN 8.4 g/dl (14.0-18.0); MEAN CORPUSCULAR HEMOGLOBIN 25.5 pg (29.0-33.0); MEAN CORPUSCULAR HGB CONC 33.2 g/dl (32.0-37.0); MEAN CORPUSCULAR VOLUME 76.7 fl (82.0-101.0); NUCLEATED RED BLOOD CELLS% 0.5 /100WBC (0.0-0.0); PLATELET COUNT 45 10^3/UL (140-415); POSITIVE DIFF @See below; RED CELL DISTRIBUTION WIDTH 18.7 % (11.5-14.5)
[2017-07-21 06:13] LABS: WHITE BLOOD COUNT 18.9 10^3/ul (4.8-10.8)
[2017-07-21 06:16] LABS: ADD MAN DIFF? YES
[2017-07-21 06:27] LABS: ANION GAP 18 (8-16); BLOOD UREA NITROGEN 113 mg/dl (7-20); CALCIUM 7.8 mg/dl (8.4-10.2); CARBON DIOXIDE 25 mmol/L (21-31); CHLORIDE 105 mmol/L (97-110); CREATININE 3.87 mg/dl (0.61-1.24); GLUCOSE 128 mg/dl (70-220); MAGNESIUM 1.9 mg/dl (1.7-2.5); PHOSPHORUS 7.2 mg/dl (2.5-4.9); POTASSIUM 4.1 mmol/L (3.5-5.1); SODIUM 144 mmol/L (135-144)
[2017-07-21] MEDS: SOD CHLORIDE 0.9% 1,000 ML IV (07:35)
[2017-07-21] MEDS: LEVETIRACETAM 1000 MG (PMX) 100 ML IVPB ×2 (08:52→20:21)
[2017-07-21] MEDS: HEPARIN 5,000 UNIT/0.5 ML VIAL SC ×2 (08:57→20:19)
[2017-07-21] MEDS: BALSAM PERU/CASTOR OIL 60 GM TUBE TOP ×2 (09:07→20:13)
[2017-07-21] MEDS: COLLAGENASE 30 GM TUBE TOP (09:09)
[2017-07-21 09:21] LABS: ANISOCYTOSIS 1+ (0-0); BAND NEUTROPHILS #M 0.9 10^3/ul (0.0-0.6); BAND NEUTROPHILS % (M) 5 % (0-4); GIANT THROMBO% (M) 5 % (0-0); LYMPHOCYTES #M 0.1 10^3/ul (0.8-2.9); LYMPHOCYTES % (M) 1 % (15-51); MONOCYTE #M 0.9 10^3/ul (0.3-0.9); MONOCYTES % (M) 5 % (0-11); PLATELET ESTIMATE SIG DECREASED; POIKILOCYTOSIS 3+ (0-0); POLYCHROMASIA 3+ (0-0); REACTIVE LYMPHOCYTES #M 0.3 10^3/ul (0.0-0.0); REACTIVE LYMPHOCYTES% (M) 2 % (0-0); SEG NEUT #M 16.6 10^3/ul (1.6-7.5); SEGMENTED NEUTROPHILS (M) % 87 % (39-77); SMUDGE%M 3 % (0-0)
[2017-07-21 10:44] LABS: AADO2 Arterial 606.3 mmHg (7.0-24.0); Allen Test ACCEPTAB; Arterial Base Excess -4.2 mmol/L (-3.0-3); Arterial Blood Gas Oxygen Sat 96.3 mmHG (95.0-98.0); Arterial COHb 0.3 % (0.0-3.0); Arterial Fraction of Oxyhgb 95.7 % (93.0-99.0); Arterial HCO3 20.8 mmol/L (22.0-26.0); Arterial MetHb 0.3 % (0.0-1.5); Arterial pCO2 34.8 mmhg (35-45); Blood Gas Mean Airway Pressure 12; MODE VENT - AC; Site Right Radial; Temperature 35.2 C
[2017-07-21 17:06] LABS: CREATININE, RANDOM URINE 53 mg/dL (20-370); MICROALBUMIN 99.5 mg/dL; MICROALBUMIN/CREATININE RATIO 1877 (<30)
[2017-07-21] MEDS: INSULIN DETEMIR [LEVEMIR] 3ML CART SC (20:15)
[2017-07-22] MEDS: INSULIN ASPART [NOVOLOG] 3 ML PEN SC ×6 (01:00→20:55)
[2017-07-22 04:42] LABS: ABNORMAL IP MESSAGE 1; HEMATOCRIT 24.3 % (42.0-52.0); HEMOGLOBIN 7.9 g/dl (14.0-18.0); MEAN CORPUSCULAR HEMOGLOBIN 24.8 pg (29.0-33.0); MEAN CORPUSCULAR HGB CONC 32.5 g/dl (32.0-37.0); MEAN CORPUSCULAR VOLUME 76.4 fl (82.0-101.0); NUCLEATED RED BLOOD CELLS% 0.6 /100WBC (0.0-0.0); PLATELET COUNT 58 10^3/UL (140-415); POSITIVE DIFF @See below; RED BLOOD COUNT 3.18 10^6/ul (4.70-6.10); RED CELL DISTRIBUTION WIDTH 18.7 % (11.5-14.5)
[2017-07-22 04:42] LABS: WHITE BLOOD COUNT 20.1 10^3/ul (4.8-10.8)
[2017-07-22 04:50] LABS: ADD MAN DIFF? YES
[2017-07-22] MEDS: PANTOPRAZOLE 40 MG INJ IV (05:14)
[2017-07-22 05:18] LABS: ANION GAP 18 (8-16); CALCIUM 8.1 mg/dl (8.4-10.2); CARBON DIOXIDE 24 mmol/L (21-31); CHLORIDE 107 mmol/L (97-110); GLUCOSE 108 mg/dl (70-220); PHOSPHORUS 8.5 mg/dl (2.5-4.9); POTASSIUM 4.2 mmol/L (3.5-5.1); SODIUM 145 mmol/L (135-144)
[2017-07-22] MEDS: HYDROCORTISONE 100 MG INJ IV ×3 (05:18→21:42)
[2017-07-22] MEDS: PIPER-TAZO 2.25 GM (PMX) 50 ML IVPB ×3 (05:18→21:42)
[2017-07-22 06:06] LABS: BLOOD UREA NITROGEN 123 mg/dl (7-20); CREATININE 4.12 mg/dl (0.61-1.24)
[2017-07-22] MEDS: SOD CHLORIDE 0.9% 1,000 ML IV (08:00)
[2017-07-22] MEDS: BALSAM PERU/CASTOR OIL 60 GM TUBE TOP ×2 (08:41→21:43)
[2017-07-22] MEDS: LEVETIRACETAM 1000 MG (PMX) 100 ML IVPB ×2 (08:41→21:42)
[2017-07-22] MEDS: COLLAGENASE 30 GM TUBE TOP (08:41)
[2017-07-22] MEDS: HEPARIN 5,000 UNIT/0.5 ML VIAL SC ×2 (08:49→21:44)
[2017-07-22 09:04] LABS: ANISOCYTOSIS 1+ (0-0); BAND NEUTROPHILS % (M) 5 % (0-4); HYPOCHROMASIA 1+ (0-0); LYMPHOCYTES #M 0.8 10^3/ul (0.8-2.9); LYMPHOCYTES % (M) 4 % (15-51); MICROCYTOSIS 1+ (0-0); MONOCYTE #M 0.4 10^3/ul (0.3-0.9); MONOCYTES % (M) 2 % (0-11); PLATELET ESTIMATE SIG DECREASED; POIKILOCYTOSIS 3+ (0-0); POLYCHROMASIA 3+ (0-0); SEG NEUT #M 18.1 10^3/ul (1.6-7.5); SEGMENTED NEUTROPHILS (M) % 89 % (39-77); SMUDGE%M 1 % (0-0)
[2017-07-22] MEDS: INSULIN DETEMIR [LEVEMIR] 3ML CART SC (20:58)
[2017-07-23] MEDS: INSULIN ASPART [NOVOLOG] 3 ML PEN SC ×5 (02:11→17:00)
[2017-07-23 05:09] LABS: ABNORMAL IP MESSAGE 1; HEMATOCRIT 22.6 % (42.0-52.0); HEMOGLOBIN 7.4 g/dl (14.0-18.0); MEAN CORPUSCULAR HEMOGLOBIN 25.3 pg (29.0-33.0); MEAN CORPUSCULAR HGB CONC 32.7 g/dl (32.0-37.0); MEAN CORPUSCULAR VOLUME 77.1 fl (82.0-101.0); NUCLEATED RED BLOOD CELLS% 0.5 /100WBC (0.0-0.0); PLATELET COUNT 58 10^3/UL (140-415); POSITIVE DIFF @See below; RED BLOOD COUNT 2.93 10^6/ul (4.70-6.10); RED CELL DISTRIBUTION WIDTH 18.8 % (11.5-14.5)
[2017-07-23 05:09] LABS: WHITE BLOOD COUNT 16.3 10^3/ul (4.8-10.8)
[2017-07-23] MEDS: PANTOPRAZOLE 40 MG INJ IV (05:10)
[2017-07-23] MEDS: HYDROCORTISONE 100 MG INJ IV ×2 (05:10→14:22)
[2017-07-23] MEDS: PIPER-TAZO 2.25 GM (PMX) 50 ML IVPB ×2 (05:10→17:17)
[2017-07-23 05:19] LABS: ADD MAN DIFF? YES
[2017-07-23 05:34] LABS: ANION GAP 21 (8-16); CALCIUM 7.9 mg/dl (8.4-10.2); CARBON DIOXIDE 22 mmol/L (21-31); CHLORIDE 108 mmol/L (97-110); GLUCOSE 110 mg/dl (70-220); PHOSPHORUS 9.9 mg/dl (2.5-4.9); POTASSIUM 4.1 mmol/L (3.5-5.1); SODIUM 147 mmol/L (135-144)
[2017-07-23 06:02] LABS: CREATININE 4.21 mg/dl (0.61-1.24)
[2017-07-23 06:06] LABS: VANCOMYCIN,RANDOM 15.2 ug/ml
[2017-07-23 06:35] LABS: BLOOD UREA NITROGEN 136 mg/dl (7-20)
[2017-07-23 07:47] LABS: ANISOCYTOSIS 1+ (0-0); BAND NEUTROPHILS #M 0.9 10^3/ul (0.0-0.6); BAND NEUTROPHILS % (M) 6 % (0-4); BURR CELLS 2+ (0-0); ERYTHROBLAST% (NRBC) (M) 2 % (0-0); LYMPHOCYTES #M 1.3 10^3/ul (0.8-2.9); LYMPHOCYTES % (M) 8 % (15-51); MICROCYTOSIS 1+ (0-0); MONOCYTE #M 0.1 10^3/ul (0.3-0.9); MONOCYTES % (M) 1 % (0-11); PLATELET ESTIMATE DECREASED; POIKILOCYTOSIS 2+ (0-0); POLYCHROMASIA 3+ (0-0); SEGMENTED NEUTROPHILS (M) % 85 % (39-77); SMUDGE%M 20 % (0-0)
[2017-07-23] MEDS: LEVETIRACETAM 1000 MG (PMX) 100 ML IVPB (08:55)
[2017-07-23] MEDS: SOD CHLORIDE 0.9% 1,000 ML IV (08:55)
[2017-07-23] MEDS: BALSAM PERU/CASTOR OIL 60 GM TUBE TOP (08:56)
[2017-07-23] MEDS: COLLAGENASE 30 GM TUBE TOP (08:56)
[2017-07-23] MEDS: HEPARIN 5,000 UNIT/0.5 ML VIAL SC (09:01)
[2017-07-23] MEDS: VANCOMYCIN 1.5 GM in SOD CHLORIDE 0.9% 250 ML IVPB (13:22)
[2017-07-23] MEDS ORDERED: morphine 2 MG INJ IV (17:30)
[2017-07-23] MEDS: morphine 2 MG INJ IV (17:47)
== END 2017-07-23 18:36 | disposition expired | DRG 870 ==
LOC: E/R 10:49 → ICU 18:35
PROC: 5A1955Z Respiratory Ventilation, Greater than 96 Consecutive Hours (ICD-10-PCS; principal; 2017-07-16)
PROC: 0BH17EZ Insertion of Endotracheal Airway into Trachea, Via Natural or Artificial Opening (ICD-10-PCS; 2017-07-16)
PROC: 06HM33Z Insertion of Infusion Device into Right Femoral Vein, Percutaneous Approach (ICD-10-PCS; 2017-07-16)
PROC: 4A133R1 Monitoring of Arterial Saturation, Peripheral, Percutaneous Approach (ICD-10-PCS; 2017-07-16)
PROC: 4A00X4Z Measurement of Central Nervous Electrical Activity, External Approach (ICD-10-PCS; 2017-07-18)
DX: A41.02 Sepsis due to Methicillin resistant Staphylococcus aureus (principal); J96.91 Respiratory failure, unspecified with hypoxia; N17.0 Acute kidney failure with tubular necrosis; J18.9 Pneumonia, unspecified organism; R57.0 Cardiogenic shock; R65.21 Severe sepsis with septic shock; J44.0 Chronic obstructive pulmonary disease with (acute) lower respiratory infection; G93.1 Anoxic brain damage, not elsewhere classified; D68.9 Coagulation defect, unspecified; I13.0 Hypertensive heart and chronic kidney disease with heart failure and stage 1 through stage 4 chronic kidney disease, or unspecified chronic kidney disease; E87.0 Hyperosmolality and hypernatremia; E87.2 Acidosis; I50.9 Heart failure, unspecified; G35 Multiple sclerosis; I25.10 Atherosclerotic heart disease of native coronary artery without angina pectoris; Z86.74 Personal history of sudden cardiac arrest; N40.0 Benign prostatic hyperplasia without lower urinary tract symptoms; E78.5 Hyperlipidemia, unspecified; E11.40 Type 2 diabetes mellitus with diabetic neuropathy, unspecified; E11.22 Type 2 diabetes mellitus with diabetic chronic kidney disease; N18.9 Chronic kidney disease, unspecified; Z95.5 Presence of coronary angioplasty implant and graft; Z79.82 Long term (current) use of aspirin; Z79.4 Long term (current) use of insulin; Z95.1 Presence of aortocoronary bypass graft; D69.6 Thrombocytopenia, unspecified; G40.909 Epilepsy, unspecified, not intractable, without status epilepticus
CPT/HCPCS: 31500; 36415; 36600; 70450; 71045; 76775; 80048; 80053; 80061; 80162; 80202; 81001; 81003; 82043; 82150; 82310; 82550; 82553; 82803; 82962; 83690; 83735; 83880; 84100; 84155; 84300; 84439; 84443; 84484; 85025; 85049; 85362; 85378; 85384; 85610; 85670; 85730; 87040; 87081; 92950; 93005; 93306; 94002; 94003; 94770; 95819; 96374; 96375; 99291-25